=== PATIENT | female | born 1955 | race Caucasian/White ===

== ENCOUNTER → 2021-08-02 08:22 | Outpatient (CLI) | payer MEDICARE, SELFPAY ==
--- NOTE | 2021-08-02 08:24 | XR_ITS ---
PROCEDURE: XR DEXA AXIAL SKELETON CLINICAL HISTORY: MENOPAUSAL STATE COMPARISON: No exams were available for comparison FINDINGS: The right hip BMD is 0.756 with a T-score of -1.5. The left hip BMD is 0.757 with a T-score of -1.5. The lumbar spine BMD is 1.006 with a T-score of -0.4. IMPRESSION: This patient is considered osteopenic according to the World Health Organization criteria. Bone density is between 10 and 25 percent below young normal. Fracture risk is moderate. Treatment is advised. Based on these results a follow-up exam is recommended in 2 year. Dictated by: Vargas Dias MD 08/02/2021 11:06 Vargas Dias MD in [facility] 08/02/2021 11:06
--- NOTE | 2021-08-02 08:24 | MM_ITS ---
PROCEDURE INFORMATION: Exam: Bilateral Screening 3D Mammography Exam date and time: 08/02/2021 8:24 AM Age: 66 years old Clinical indication: Screening mammogram TECHNIQUE: Imaging protocol: Bilateral screening tomosynthesis and 2D mammography including computer-aided detection (CAD) when performed. COMPARISON: MA-MAMMO SCREENING 3D MELVINA BILATERAL 07/09/2020 10:04 AM FINDINGS: MAMMOGRAPHY: Breast composition: The breast tissue is heterogeneously dense, which may obscure small masses. Mass: None. Architectural distortion: No new or suspicious architectural distortion. Calcifications: No new or suspicious calcifications are present Asymmetric density: No new or suspicious asymmetric density is present Skin thickening: Right breast skin thickening consistent with history of radiation therapy Axillary adenopathy: None. Other findings: Stable postoperative findings within the right breast. . IMPRESSION: No mammographic evidence of malignancy. Recommend annual screening mammography unless otherwise clinically indicated. ASSESSMENT: BI-RADS category 2: Benign
== END ==
PROVIDERS: PCP Internal Medicine Adolescent Medicine; Visit Provider Internal Medicine Adolescent Medicine
DX: Z12.31 Encounter for screening mammogram for malignant neoplasm of breast (principal); Z78.0 Asymptomatic menopausal state
CPT/HCPCS: 77063; 77067; 77080

== ENCOUNTER → 2021-08-10 13:58 | Outpatient (CLI) | payer MEDICARE, SELFPAY ==
--- NOTE | 2021-08-10 14:19 | XR_ITS ---
PROCEDURE: XR FOOT RT MIN 3V CLINICAL INDICATION: RT ANTERIOR KNEE PAIN, RT FOOT PAIN COMPARISON: No exams were available for comparison FINDINGS: No fracture or dislocation. No lytic or blastic change. There is normal mineralization. Generalized osteopenia. Prior fusion the talotibial joint. Multiple cortical screws are present. Osteoarthritic changes are present at the navicular cuneiform and cuneiform tarsal joint 1 of the cortical screws extends to and possibly be on the distal articular surface the talus medially. Ankle films would better evaluate. Other findings:None. IMPRESSION: Generalized osteopenia with postsurgical changes. No acute finding. Please see above for detail Dictated by: Vargas Dias MD 08/10/2021 19:11 Vargas Dias MD in [facility] 08/10/2021 19:11
--- NOTE | 2021-08-10 14:19 | XR_ITS ---
PROCEDURE: XR KNEE RT 3V CLINICAL INDICATION: RT ANTERIOR KNEE PAIN, RT FOOT PAIN COMPARISON: No exams were available for comparison FINDINGS: Status post total knee replacement. No acute fracture or dislocation. There is good alignment of the prosthesis. Other findings:A faint calcific density is present along the lateral femoral condyle it could be due to old ligamentous injury. IMPRESSION: Good alignment status post knee replacement with no acute finding Faint calcific density along the lateral femoral condyle possibly due to old ligamentous injury Dictated by: Vargas Dias MD 08/10/2021 19:13 Vargas Dias MD in [facility] 08/10/2021 19:13
--- NOTE | 2021-08-10 14:19 | XR_ITS ---
PROCEDURE: XR RIBS LT 2V CLINICAL INDICATION: CHEST WALL PAIN COMPARISON: No exams were available for comparison FINDINGS: Frontal view of the chest shows no acute finding. There is an old right 5th rib fracture anteriorly. There is a old left 5th rib fracture anteriorly No acute fracture or dislocation. IMPRESSION: Old bilateral 5th rib fractures Dictated by: Vargas Dias MD 08/10/2021 19:15 Vargas Dias MD in [facility] 08/10/2021 19:15
--- NOTE | 2021-08-10 14:20 | XR_ITS ---
PROCEDURE: XR CHEST 2V CLINICAL HISTORY: CHEST WALL PAIN COMPARISON: CR XR RIBS LT 2V from 08/10/2021 FINDINGS: The cardiomediastinal silhouette and pulmonary vascularity are within normal limits. The lungs are clear without infiltrates, suspicious nodules, or pleural effusions. Degenerative changes thoracic spine. Mild wedging T11 age which may be chronic. Old right 5th rib fracture.. IMPRESSION: No acute findings. Dictated by: Vargas Dias MD 08/10/2021 19:08 Vargas Dias MD in [facility] 08/10/2021 19:08
[2021-08-10 14:34] LABS: Basophils # 0.1 K/mm3 (0-0.2); Basophils % 0.4 % (0.1-2.0); Eosinophils # 0.2 K/mm3 (0.0-0.4); Eosinophils % 1.6 % (0.1-12.0); Hematocrit 43.6 % (37.0-47.0); Hemoglobin 14.4 g/dL (12.2-16.2); Lymphocytes % 16.8 % (10-50); Mean Corpuscular HGB Conc 33.1 g/dL (31.8-35.4); Mean Corpuscular Hemoglobin 31.1 pg (27.0-31.2); Mean Corpuscular Volume 94.1 fl (81-99); Mean Platelet Volume 8.8 fl (7.4-10.4); Monocytes # 0.5 K/mm3 (0.1-1.0); Monocytes % 4.1 % (1.7-9.3); Neutrophils # 9.2 K/mm3 (1.8-7.8); Platelet Count 290 K/mm3 (142-424); Red Blood Count 4.64 M/mm3 (4.20-5.40); Red Cell Distribution Width 13.9 % (11.5-17.5); White Blood Count 11.9 K/mm3 (4.8-10.8)
[2021-08-10 16:28] LABS: Chloride 105 mmol/L (98-107); Sodium 143 mmol/L (136-145)
[2021-08-10 16:29] LABS: Potassium 3.8 mmoL/L (3.5-5.1)
[2021-08-10 16:31] LABS: Blood Urea Nitrogen 20 mg/dl (7-17); Estimated Glomerular Filt Rate 50 ml/min (>60); GFR (African American) 60 ML/MIN (>60)
[2021-08-10 16:32] LABS: Anion Gap 15.8 mEq/L (5-15); Calcium 9.9 mg/dl (8.4-10.2); Carbon Dioxide 26 mmol/L (22.0-30.0); Glucose 124 mg/dl (74-100)
== END ==
PROVIDERS: Visit Provider Internal Medicine Adolescent Medicine
DX: R07.89 Other chest pain (principal)
CPT/HCPCS: 36415; 71046; 71100; 73562; 73630; 80048; 85025

== ENCOUNTER 2021-11-05 11:00 | Outpatient (RCR) | payer MEDICARE, SELFPAY ==
--- NOTE | 2021-07-15 15:34 | HMH.PTOPEV ---
PT Outpatient Evaluation Rehab PT Outpatient Evaluation Start: 07/15/21 13:59 Freq: Status: Active Protocol: Document 07/15/21 13:59 JORGEDIONTE (Rec: 07/15/21 15:34 [email or web address] [id number]) Electronically Signed By James Sutton, PT 07/15/21 13:59 Outpatient Therapy Subjective History Subjective History Pt. is a 66 year old female who presents to Outpatient [facility] w/ c/o chronic and constant LLE foot drop, calf P!, and numbness w/ initial onset in 2020. Pt. reports diagnosis of foot drop was d/t a possible stroke secondary to having COVID back in 2020, but stated not noticing foot drop until 2020. Pt. denies having any diagnostic imaging confirming possible stroke per pt. report. Pt. reports donning a boot(promoting DF and stretching to the PFs) while sleeping, but states not having any symptom relief. Pt . reports Dr. Vasquez ordering an AFO, but wanted Physical Therapy to take a look first. Pt. RTMD in 2 wks. Pt. reports she is only in town until the beginning of August this year then she goes back to [place]. Current medications include Levothyroxine, Exemestane, Mirtazapine, Benlafaxine, Buspirone HCL, Nexium, Aripiprazole, and Centrum. PMH includes RLE ankle surgical reconstruction, Hypertension, Depression/Anxiety Disorder, L -sided Cochlear implant, B/L Carpal Tunnel Surgeries, B/L Trigger finger release, B/L TKA, Colostomy Reversal Surgery, and Breast Cancer. Chief Complaint Pain,Spasms,Stiff,Swelling, Paresthesia,Weakness,Decreased Coordination Symptom Type Ache,Sharp,Dull,Numbness, Shooting Symptoms Relieved By
== END 2021-11-08 14:51 | disposition home or self-care (01) ==
LOC: PT.CARL 11:00
PROVIDERS: Visit Provider Internal Medicine Adolescent Medicine
DX: M21.372 Foot drop, left foot (principal)
CPT/HCPCS: 97014; 97110; 97116; 97140; 97163; 97164; 97530; G0283